=== PATIENT | female | born 1975 | race African-American/Black ===

== ENCOUNTER 2021-09-28 14:44 | Emergency (ER) | payer OTHER ==
[~2021-09-28] VITALS: Ht 175.3 cm; Wt 61.2 kg
[2021-09-28 14:46] VITALS: BP 155/72
[2021-09-28] MEDS ORDERED: cefTRIAXone SOD 1,000 MG VL IM ONE (17:15)
[2021-09-28] MEDS ORDERED: KETOROLAC TROMETH 60MG/2ML VIAL IM ONE (17:15)
== END 2021-09-28 17:41 | disposition home or self-care (01) ==
LOC: ER 14:44
DX: L03.115 Cellulitis of right lower limb (principal)
CPT/HCPCS: 96372; 99284; J0696; J1885